=== PATIENT | male | born 1970 | race Caucasian/White ===

== ENCOUNTER 2017-11-02 05:56 | Emergency (ER) | payer MEDICARE, OTHER ==
[2017-11-02 06:24] VITALS: BP 122/88; PULSE 68; TEMP 98; BMI 25.8
[2017-11-02] MEDS ORDERED: IBUPROFEN 600 MG TABLET (FP) PO ONE ×2 (06:27→06:31)
--- NOTE | 2017-11-02 06:40 | PDOC ---
History of Present Illness - General History Source: Patient, Old Records Exam Limitations: No Limitations - History of Present Illness Initial Comments: 11/02/17 06:41 Patient is a 47 year old male with a significant past medical history of murmur as a child, who presents to the ED with complaints of right elbow pain that began 2 week ago. Patient reports standing at work when he was accidentally struck on his right elbow by a steel container filled with sheet rock that he states possibly weight 600 lbs. He reports trying to work through the pain but states it has increased in intensity until it became unbearable, prompting him to come into the ED for further evaluation. Denies numbness, tingling. Denies fevers, chills. Denies nausea, vomiting. Denies chest pain, sob. Denies any other symptoms. Allergies: None Social history: Works in construction. No smoking. No alcohol. No illicit drugs. Surgical history: None PMD: Dr. Ramirez <Francis Plunkett - Last Filed: 11/02/17 06:41> <Candace Vasques - Last Filed: 11/06/17 21:41> - General Chief Complaint: Pain Stated Complaint: ELBOW INJURY Time Seen by Provider: 11/02/17 06:27 Past History <Francis Plunkett - Last Filed: 11/02/17 06:41> - Past Medical History Cardiac Disorders: No COPD: No Diabetes: No Seizures: No Thyroid Disease: No - Suicide/Smoking/Psychosocial Hx Smoking History: Never smoked Hx Alcohol Use: No Drug/Substance Use Hx: No Substance Use Type: None <Candace Vasques - Last Filed: 11/06/17 21:41> - Past Medical History Allergies/Adverse Reactions: Allergies Allergy/AdvReac Type Severity Reaction Status Date / Time No Known Drug Allergies Allergy Verified 11/02/17 06:22 Home Medications: Ambulatory Orders NK [No Known Home Medication] 11/02/17 Review of Systems - Review of Systems Able to Perform ROS?: Yes Comments:: 11/02/17 06:41 GENERAL/CONSTITUTIONAL: No fever or chills. No weakness. HEAD, EYES, EARS, NOSE AND THROAT: No change in vision. No ear pain or discharge. No sore throat. CARDIOVASCULAR: No chest pain or shortness of breath. RESPIRATORY: No cough, wheezing, or hemoptysis. GASTROINTESTINAL: No nausea, vomiting, diarrhea or constipation. GENITOURINARY: No dysuria, frequency, or change in urination. MUSCULOSKELETAL: +Right elbow pain. No neck or back pain. SKIN: No rash NEUROLOGIC: No headache, vertigo, loss of consciousness, or change in strength/ sensation. ENDOCRINE: No increased thirst. No abnormal weight change. HEMATOLOGIC/LYMPHATIC: No anemia, easy bleeding, or history of blood clots. ALLERGIC/IMMUNOLOGIC: No hives or skin allergy. <Francis Plunkett - Last Filed: 11/02/17 06:41> *Physical Exam - Vital Signs Last Vital Signs Temp Pulse Resp BP Pulse Ox 98 F 68 16 122/88 98 11/02/17 06:23 11/02/17 06:23 11/02/17 06:23 11/02/17 06:23 11/02/17 06:23 - Physical Exam Comments: 11/02/17 06:41 GENERAL: Awake, alert, and fully oriented, in no acute distress HEAD: No signs of trauma EYES: PERRLA, EOMI, sclera anicteric, conjunctiva clear ENT: Auricles normal inspection, hearing grossly normal, nares patent, oropharynx clear without exudates. Moist mucosa NECK: Normal ROM, supple, no lymphadenopathy, JVD, or masses LUNGS: Breath sounds equal, clear to auscultation bilaterally. No wheezes, and no crackles HEART: Regular rate and rhythm, normal S1 and S2, no murmurs, rubs or gallops ABDOMEN: Soft, nontender, normoactive bowel sounds. No guarding, no rebound. No masses EXTREMITIES: +Prominence of the right lateral epicondyle No edema. No clubbing or cyanosis. No cords, erythema NEUROLOGICAL: Cranial nerves II through XII grossly intact. Normal speech, normal gait SKIN: Warm, Dry, normal turgor, no rashes or lesions noted. <Francis Plunkett - Last Filed: 11/02/17 06:41> - Vital Signs Last Vital Signs Temp Pulse Resp BP Pulse Ox 98 F 68 16 122/88 98 11/02/17 06:23 11/02/17 06:23 11/02/17 06:23 11/02/17 06:23 11/02/17 06:23 <Candace Vasques - Last Filed: 11/06/17 21:41> ED Treatment Course - Medications Given in the ED: ED Medications Discontinued Medications Generic Name Dose Route Start Last Admin Trade Name Freq PRN Reason Stop Dose Admin Ibuprofen 600 mg 11/02/17 06:27 11/02/17 06:33 Motrin - PO 11/02/17 06:28 600 mg ONCE ONE Administration <Francis Plunkett - Last Filed: 11/02/17 06:41> - RADIOLOGY Radiology Studies Ordered: Category Date Time Status ELBOW-RIGHT [RAD] Stat Radiology 11/02/17 06:26 Ordered - Medications Given in the ED: ED Medications Discontinued Medications Generic Name Dose Route Start Last Admin Trade Name Freq PRN Reason Stop Dose Admin Ibuprofen 600 mg 11/02/17 06:27 11/02/17 06:33 Motrin - PO 11/02/17 06:28 600 mg ONCE ONE Administration <Candace Vasques - Last Filed: 11/06/17 21:41> Medical Decision Making - Medical Decision Making 11/02/17 06:35 Pt comes with lateral epicondyle pain and swelling and tenderness with palpation after a 600lb sterl drum full of sheet rock was pushed into his arm accidentally at work 2 weeks ago on a night. 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 Pt has no other PMHx. He attempted to work through the pain. He has been trating himself with advil, but pain is too severe, and now tying his shoes or drinking coffee with his right hand is too painful, so he comes to check out the right elbow. Pt has pain with supination and pronation. Pulses are intact. Cap refill is normal. Lumbricals intact. Strength in the right arm decreased secondary to pain in the elbow. Rest of exam is normal. XR right elbow pending. Pt will require splinting and follow up with orhto; MRI , as ortho deems needed , and days off, as this is worker's comp issue. Pt has been notified of his need to rest the injured the elbow. Pt will be signed out to the oncoming AM doctor. <Candace Vasques - Last Filed: 11/06/17 21:41> *DC/Admit/Observation/Transfer - Attestations Scribe Attestion: 11/02/17 06:41 Documentation prepared by Francis Plunkett, acting as territory sales manager medical for Candace Vasques MD/DO. <Francis Plunkett - Last Filed: 11/02/17 06:41> <Candace Vasques - Last Filed: 11/06/17 21:41> Diagnosis at time of Disposition: Elbow fracture, right - Discharge Dispostion Disposition: HOME Condition at time of disposition: Good - Referrals Referrals: Lemuel Rodríguez MD [Staff Physician] - Parvez Ramirez MD [Primary Care Provider] - - Patient Instructions Printed Discharge Instructions: How to Use a Sling, DI for Elbow Fracture Additional Instructions: Keep splint in place. Keep dry while showering. Ice affected elbow 20 minutes on 20 minutes off. Do not work. In 1-2 days follow-up with Orthopedics. Follow all recommendations provided by the doctor. He may recommend additional time off. Return to ED for any concerns. - Post Discharge Activity Forms/Work/School Notes: Back to Work
--- NOTE | 2017-11-02 07:44 | PDOC ---
*Physical Exam - Vital Signs Last Vital Signs Temp Pulse Resp BP Pulse Ox 98 F 68 16 122/88 98 11/02/17 06:23 11/02/17 06:23 11/02/17 06:23 11/02/17 06:23 11/02/17 06:23 ED Treatment Course - Medications Given in the ED: ED Medications Discontinued Medications Generic Name Dose Route Start Last Admin Trade Name Luis Armando PRN Reason Stop Dose Admin Ibuprofen 600 mg 11/02/17 06:27 11/02/17 06:33 Motrin - PO 11/02/17 06:28 600 mg ONCE ONE Administration Medical Decision Making - Medical Decision Making 11/02/17 07:39 X-ray findings as dictated. Findings discussed with patient. Patient placed in a posterior 90 elbow splint by INGRIS Cota given sling and provided with orthopedic follow-up this week Findings, need for follow-up, strict return instructions discussed with patient. *DC/Admit/Observation/Transfer Diagnosis at time of Disposition: Elbow fracture, right Qualifiers: Encounter type: initial encounter Fracture type: closed Qualified Code(s): S42.401A - Unspecified fracture of lower end of right humerus, initial encounter for closed fracture - Discharge Dispostion Disposition: HOME Condition at time of disposition: Good Admit: No - Referrals Referrals: Parvez Ramirez MD [Primary Care Provider] - Lemuel Rodríguez MD [Staff Physician] - - Patient Instructions Printed Discharge Instructions: How to Use a Sling, DI for Elbow Fracture Additional Instructions: Keep splint in place. Keep dry while showering. Ice affected elbow 20 minutes on 20 minutes off. Do not work. In 1-2 days follow-up with Orthopedics. Follow all recommendations provided by the doctor. He may recommend additional time off. Return to ED for any concerns. - Post Discharge Activity Forms/Work/School Notes: Back to Work
== END 2017-11-02 07:50 | disposition home or self-care (01) ==
LOC: JER 05:56
PROC: 2W3CX1Z Immobilization of Right Lower Arm using Splint (ICD-10-PCS; principal; 2017-11-02)
DX: S42.401A Unspecified fracture of lower end of right humerus, initial encounter for closed fracture (principal); W20.8XXA Other cause of strike by thrown, projected or falling object, initial encounter; Y93.89 Activity, other specified; Y92.9 Unspecified place or not applicable; Y99.0 Civilian activity done for income or pay
CPT/HCPCS: 73070-TC-RT-FY; 99282-25

== ENCOUNTER 2018-09-18 06:27 | Emergency (ER) | payer MEDICARE ==
[2018-09-18 06:54] VITALS: BP 143/73; PULSE 85; TEMP 97.9; BMI 25.4
--- NOTE | 2018-09-18 07:40 | PDOC ---
History of Present Illness - General Chief Complaint: Chest Pain Stated Complaint: CHEST PAIN, SHORTNESS OF BREATH Time Seen by Provider: 09/18/18 07:04 History Source: Patient Exam Limitations: No Limitations - History of Present Illness Initial Comments: 09/18/18 08:20 48 yo male no sig pmh, 18 pack year hx of smoking (quit 13 years ago) and FHX of father who pasted away from Lung CA in his 40s (no smoking hx) presents to the ED with 3 weeks of SOB, CP and chills. Pt went to Urgent care 3 weeks ago, told he had bronchitis and given 10 days Amoxicillin, taken as prescribed with no improvement. Pt admits to SOB when laying flat and at night, exertional SOB when walking 2 blocks (previously healthy, runs 5 miles a week without difficulty) dry cough and substernal CP with deep breaths and coughing Past History - Past Medical History Allergies/Adverse Reactions: Allergies Allergy/AdvReac Type Severity Reaction Status Date / Time No Known Drug Allergies Allergy Verified 09/18/18 06:54 Home Medications: Ambulatory Orders Methylprednisolone [Medrol Dose Taurus] 4 mg PO ASDIR #21 tablet 09/18/18 Cardiac Disorders: No COPD: No Diabetes: No Seizures: No Thyroid Disease: No - Suicide/Smoking/Psychosocial Hx Smoking History: Never smoked Have you smoked in the past 12 months: No Information on smoking cessation initiated: No Hx Alcohol Use: Yes (Social) Drug/Substance Use Hx: No Substance Use Type: None *Physical Exam - Vital Signs Last Vital Signs Temp Pulse Resp BP Pulse Ox 97.9 F 85 18 143/73 100 09/18/18 06:27 09/18/18 06:27 09/18/18 06:27 09/18/18 06:27 09/18/18 06:27 Moderate Sedation - Procedure Monitoring Vital Signs: Procedure Monitoring Vital Signs Temperature 97.9 F 09/18/18 06:27 Pulse Rate 85 09/18/18 06:27 Respiratory Rate 18 09/18/18 06:27 Blood Pressure 143/73 09/18/18 06:27 O2 Sat by Pulse Oximetry (%) 100 09/18/18 06:27 ED Treatment Course - LABORATORY CBC & Chemistry Diagram: 09/18/18 07:42 09/18/18 07:42 - RADIOLOGY Radiology Studies Ordered: Category Date Time Status CHEST PA & LAT [RAD] Stat Radiology 09/18/18 07:31 Ordered Medical Decision Making - Medical Decision Making 48 yo male, 18 pack year hx, currently non smoker, FHX of father pasted away from lung cancer, presents to the ED SOB for 3 weeks Vitals WNL DDX INLT: ACS, CHF, PE, intersitial lung disease, lung ca, PNA Pt SOB at rest in the ED with normal O2 saturation Peak flow 550 Given duoneb and 2 L O2 NC with improvement of symptoms CBC, CMP unremarkable Trops and BNP normal CK elevated at 480s. Chest CTA negative for PE or acute path Pt still appears mildly SOB and cardiac workup indicated. Pt given 162 ASA 09/18/18 14:19 spoke with SHADE MAKER Anil Carballo who states pt will not have Cardiac work up in hospital until Thursday (non emergent, 3 weeks of s/s and normal blood work) an outpatient Cardiology appointment will be set for Thursday, Currently waiting for Doctor's name and time of appointment before DC Dr. Neal will see pt Thursday. ELVIS Ma will come speak with patient around 2 45 pm and clarify DC instructions for pt. *DC/Admit/Observation/Transfer Diagnosis at time of Disposition: SOB (shortness of breath) - Discharge Dispostion Disposition: HOME Condition at time of disposition: Stable - Prescriptions Prescriptions: Methylprednisolone [Medrol Dose Taurus] 4 mg PO ASDIR #21 tablet - Referrals Referrals: Shakeel Neal MD [Staff Physician] - Adrianna Arora MD [Primary Care Provider] - - Patient Instructions Printed Discharge Instructions: DI for Shortness of Breath, DI for Atypical Chest Pain Additional Instructions: Please call Dr. Neal's office before 10 am Thursday Morning for an appointment later in the day; they are expecting your call. See your Primary Care Doctor within the next 48 hours. Take the medication sent to your Pharmacy as prescribed to help with your shortness of breath. Return to the ER immediately for new or concerning symptoms including but not limited to: chest pain, shortness of breath, new back pain, high fevers. Thank you - Post Discharge Activity
[2018-09-18 07:52] LABS: BASO % 0.4 % (0-2.0); EOS % 0.3 % (0-4.5); HEMOGLOBIN 14.3 GM/dL (11.7-16.9); LYMPH % 14.7 % (8-40); MCH 31.4 pg (25.7-33.7); MEAN CELL VOLUME 89.9 fl (80-96); MEAN PLT VOLUME 8.5 fl (7.5-11.1); NEUT % 77.6 % (42.8-82.8); PLATELET COUNT 241 K/MM3 (134-434); RBC 4.56 M/mm3 (4.00-5.60); RDW 13.4 % (11.9-15.9)
--- NOTE | 2018-09-18 08:08 | PDOC ---
Attending Attestation - Resident Resident Name: Sergey Allen - ED Attending Attestation I have performed the following: I have examined & evaluated the patient, The case was reviewed & discussed with the resident, I agree w/resident's findings & plan - HPI HPI: 09/18/18 08:03 48y/o m former smoker, quit 13 years ago, otherwise healthy and active typically running 5 miles every weekend presents now with 2-3 weeks of ongoing right midthoracic discomfort with cough, chills/night sweats, and dyspnea on exertion. Patient first noticed the symptoms at work when he was climbing stairs and experiencing shortness of breath, which was very unusual for him. The cough developed initially with yellow phlegm, he was seen at an urgent care and prescribed 10 days of amoxicillin with which he was compliance, his symptoms got a little better and the cough became nonproductive but his shortness of breath returned 2 days after completing antibiotics. Presents now for evaluation, denies any sharp or crushing precordial chest pain , more right-sided lung discomfort. No drugs, no PE risk factors, no DVT symptoms Father had lung CA in the absence of smoking history, had DVT/PE in that setting. - Physicial Exam PE: 09/18/18 08:06 Vital signs are normal Well-appearing, ambulatory Occasional dry cough during history and physical exam Oropharynx clear, no JVD Heart is regular, no audible murmur Lungs are clear, subtle crackle at the right base. Slight wheeze with cough, no focally decreased breath sounds Abdomen benign, no hepatosplenomegaly No leg swelling or calf tenderness - Medical Decision Making 09/18/18 08:06 48-year-old male with new dyspnea on exertion for the last 2-3 weeks, associated chills and cough. Presentation seems most consistent with infectious etiology, rule out any space-occupying lesion given the smoking history and family history. Possible cardiac etiology. Labs, urinalysis EKG, chest x-ray. Chest x-ray is normal, would perform CT of the chest with contrast O2 sat is normal at rest, will reassess and disposition accordingly 09/18/18 10:52 labs wnl, including trop though ckmb elevated. cxr clear, cta chest shows no consolidation/PE. given new onset MCCANN, will need admission for further cardiac workup. Heart Score/ECG Review #1 ECG reviewed & interpreted by me at: 06:35 General ECG Interpretation: Sinus Rhythm, Normal Rate, Normal Intervals (qrs 128 with RBBB, qtc 440), No acute ischemic changes Compared to previous ECG there are: No significant change (had IRBBB in 3/16)
[2018-09-18 08:33] LABS: ALBUMIN 3.8 g/dl (3.4-5.0); ALK PHOS 63 U/L (45-117); ANION GAP 5 MMOL/L (8-16); BILIRUBIN,TOTAL 0.3 mg/dL (0.2-1); BLOOD UREA NITROGEN 18 mg/dL (7-18); CALCIUM 8.7 mg/dL (8.5-10.1); CHLORIDE 108 mmol/L (98-107); CO2 25 mmol/L (21-32); CREATININE 0.9 mg/dL (0.55-1.3); GLUCOSE,RANDOM 85 mg/dL (74-106); N-TERMINAL BNP 152.4 pg/ml (5-125); SGOT/AST 30 U/L (15-37); SGPT/ALT 51 U/L (13-61); SODIUM 138 mmol/L (136-145); TOT PROT 6.9 g/dl (6.4-8.2)
[2018-09-18 08:44] LABS: URINE APPEARANCE CLEAR; URINE BILIRUBIN NEGATIVE (<2.0 mg/dL); URINE COLOR COLORLESS; URINE GLUCOSE (UA) NEGATIVE (NEGATIVE); URINE KETONE NEGATIVE (NEGATIVE); URINE LEUK ESTERASE NEGATIVE (NEGATIVE); URINE NITRITE NEGATIVE (NEGATIVE); URINE PROTEIN NEGATIVE (NEGATIVE); URINE UROBILINOGEN NEGATIVE mg/dL (0.2-1.0)
[2018-09-18] MEDS ORDERED: SODIUM CHLORIDE 500 ML IV STA (09:11)
[2018-09-18] MEDS ORDERED: ALBUTEROL SO4 2.5/IPRATROPIUM 0.5 INH SOL 3 ML VIAL.NEB. NEB ONE ×2 (10:49→11:01)
[2018-09-18] MEDS ORDERED: ASPIRIN 81 MG CHEWABLE TABLETS PO ONE (11:08)
[2018-09-18] MEDS ORDERED: ASPIRIN 81 MG CHEWABLE TABLETS ONE (11:24)
--- NOTE | 2018-09-18 13:12 | EKG ---
Test Reason : Blood Pressure : / mmHG Vent. Rate : 072 BPM Atrial Rate : 072 BPM P-R Int : 146 ms QRS Dur : 128 ms QT Int : 402 ms P-R-T Axes : 072 097 027 degrees QTc Int : 440 ms NORMAL SINUS RHYTHM RIGHT BUNDLE BRANCH BLOCK ABNORMAL ECG WHEN COMPARED WITH ECG OF 19-SEP-2015 11:56, RIGHT BUNDLE BRANCH BLOCK HAS REPLACED INCOMPLETE RIGHT BUNDLE BRANCH BLOCK Confirmed by MD KAI, ADALI ([id number]) on 09/18/2018 1:11:53 PM Referred By: Confirmed By:ADALI QUINN MD
== END 2018-09-18 15:25 | disposition home or self-care (01) ==
LOC: JER 06:27
PROC: 3E0F7GC Introduction of Other Therapeutic Substance into Respiratory Tract, Via Natural or Artificial Opening (ICD-10-PCS; principal; 2018-09-18)
PROC: 3E0337Z Introduction of Electrolytic and Water Balance Substance into Peripheral Vein, Percutaneous Approach (ICD-10-PCS; 2018-09-18)
DX: R07.9 Chest pain, unspecified (principal); Z87.891 Personal history of nicotine dependence
CPT/HCPCS: 36415; 71046-TC-FY; 71275-TC; 80053; 81003; 82550; 82553; 83880; 84484; 85025; 87086; 93005; 93010; 94640; 96360; 99284-25

== ENCOUNTER 2020-04-03 09:50 | Emergency (ER) | payer OTHER ==
[2020-04-03 09:58] VITALS: TEMP 97.6; BMI 26.4
[2020-04-03] MEDS ORDERED: SODIUM CHLORIDE 1,000 ML IV STA (10:02)
[2020-04-03] MEDS ORDERED: ACETAMINOPHEN 1000 MG/100 ML VIAL (NON FORMULARY) IVPB ONE (10:02)
--- OUTSIDE RECORDS SUMMARY | 2020-04-03 10:16 | XMS ---
:1970 Author Organization [facility] Care Team Providers Name Role Phone TAYLOR HERNANDEZ, [id number] Unavailable Unavailable Benny Rivera Unavailable Unavailable Re-disclosure Warning The records that you are about to access may contain information from federally- assisted alcohol or drug abuse programs. If such information is present, then the following federally mandated warning applies: This information has been disclosed to you from records protected by federal confidentiality rules (42 CFR part 2). The federal rules prohibit you from making any further disclosure of this information unless further disclosure is expressly permitted by the written consent of the person to whom it pertains or as otherwise permitted by 42 CFR part 2. A general authorization for the release of medical or other information is NOT sufficient for this purpose. The Federal rules restrict any use of the information to criminally investigate or prosecute any alcohol or drug abuse patient.The records that you are about to access may contain highly sensitive health information, the redisclosure of which is protected by Article 27-F of the [facility] Public Health law. If you continue you may haveaccess to information: Regarding HIV / AIDS; Provided by facilities licensed or operated by the [facility] Office of Mental Health; or Provided by the [facility] Office for People With Developmental Disabilities. If such information is present, then the following [facility] mandated warning applies: This information has been disclosed to you from confidential records which are protected by state law. State law prohibits you from making any further disclosure of this information without the specific written consent of the person to whom it pertains, or as otherwise permitted by law. Any unauthorized further disclosure in violation of state law may result in a fine or prison sentence or both. A general authorization for the release of medical or other information is NOT sufficient authorization for further disclosure. Allergies and Adverse Reactions Type Description Substance Reaction Status Data Source(s ) Drug allergy No Known Drug No Known Drug [facility] Allergies Personal Care [facility] Food allergy No Known Food No Known Food [facility] Allergies Allergies [facility] Drug allergy No Known Allergies No Known [facility] [place] Encounters Encounter Providers Location Date Indications Data Source(s ) Outpatient Attender: Benny 01/04/2020 [facility] 07:01:00 [facility] EDT GASTROP[facility]IS Outpatient Attender: [id number] 06/21/2019 03:05:00 Z77.011 [facility] TAYLOR HERNANDEZ [facility] C.Admitter: [id number] TAYLOR CamachoReferrer: [id number] TAYLOR HERNANDEZ Z77.011 Outpatient Attender: [id number] 03/09/2019 10:17:00 R78.71 [facility] TAYLOR HERNANDEZ [facility] C.Admitter: [id number] TAYLOR CamachoReferrer: [id number] TAYLOR HERNANDEZ R78.71 Insurance Providers Payer name Policy type Policy ID Covered Covered alliance party's Policy P opal / Coverage alliance party ID relationship to Ferrell Inf ormation type ferrell [employer] HMO [id number] SP [id number] [employer]ETNA HMO [id number] PT [id number] AETNA O [id number] SP [id number] ARNOL [id number] SP [id number] MEDICARE ADV PLAN Problems, Conditions, and Diagnoses Code Display Name Description Problem Type Effective Data Sour ce(s) Dates Encounter for Z03.89 Diagnosis 01/04/2020 [facility] s observation for 07:01:00 AM Hospital other suspected EDT diseases and conditions ruled out Z77.011 Contact with and CONTACT WITH AND Diagnosis 06/21/2019 [facility] (suspected) (SUSPECTED) 03:05:00 PM [facility] exposure to lead EXPOSURE TO LEAD [facility] R78.71 Abnormal lead ABNORMAL LEAD Diagnosis 03/09/2019 [facility] level in blood LEVEL IN BLOOD 10:17:00 AM [facility]T [facility]
[2020-04-03] MEDS ORDERED: ACETAMINOPHEN INJECTION 100 ML IVPB ONE (10:21)
--- NOTE | 2020-04-03 10:24 | PDOC ---
History of Present Illness - General Chief Complaint: Headache Stated Complaint: HEADACHE Time Seen by Provider: 04/03/20 10:01 History Source: Patient Exam Limitations: No Limitations - History of Present Illness Initial Comments: 04/03/20 10:33 49-year-old male presents to ED with complaints of a frontal throbbing pressure for the past 3 weeks without triggering factors. Patient now stating the pain has radiated to the his occipital region describing it also has a throbbing sensation. Patient denies visual changes, weakness, nausea, dizziness, recent head injury, recent car accident or history of the same. Patient states has taken Motrin with moderate effect. Timing/Duration: reports: other Severity: Yes: moderate Associated Symptoms: reports: denies symptoms Past History - Travel History Traveled outside of the country in the last 30 days: No Close contact w/someone who was outside of country & ill: No - Medical History Allergies/Adverse Reactions: Allergies Allergy/AdvReac Type Severity Reaction Status Date / Time No Known Drug Allergies Allergy Verified 04/03/20 09:55 Home Medications: Ambulatory Orders Methylprednisolone [Medrol Dose [place]] 4 mg PO ASDIR #21 tablet 09/18/18 Methylprednisolone [Medrol Dose [place]] 4 mg PO ASDIR #21 tablet 09/18/18 Butalb/Acetaminophen/Caffeine [Fioricet Tablet 50-325-40] 1 each PO TID PRN #12 tablet MDD 3 04/03/20 Cardiac Disorders: No COPD: No Diabetes: No Seizures: No Thyroid Disease: No - Psycho-Social/Smoking History Patient Lives Alone: No Lives with/in: spouse/SO Smoking History: Never smoked Have you smoked in the past 12 months: No Information on smoking cessation initiated: No - Substance Abuse Hx (Audit-C & DAST Scrn) How often the patient has a drink containing alcohol: Never Score: In Men: 4 or > Positive; In Women: 3 or > Positive: 0 Screen Result (Pos requires Nsg. Audit-10AR): Negative In the last yr the pt used illegal drug/Rx for NonMed reason: No Score: Yes response is considered Positive: 0 Screen Result (Positive result requires Nsg. DAST-10): Negative Review of Systems - Review of Systems Able to Perform ROS?: Yes Is the patient limited Nepali proficient: Yes Constitutional: No: Symptoms Reported HEENTM: No: Symptoms Reported Respiratory: No: Symptoms reported Cardiac (ROS): No: Symptoms Reported ABD/GI: No: Abd. Pain w/ defecation : No: Symptoms Reported Musculoskeletal: No: Symptoms Reported Integumentary: No: Symptoms Reported Neurological: Yes: Headache. No: Weakness, Dizziness Endocrine: No: Symptoms Reported *Physical Exam - Vital Signs Last Vital Signs Temp Pulse Resp BP Pulse Ox 97.6 F 76 17 118/86 98 04/03/20 09:53 04/03/20 09:53 04/03/20 09:53 04/03/20 09:53 04/03/20 09:53 - Physical Exam General Appearance: Yes: Nourished, Appropriately Dressed. No: Apparent Distress HEENT: positive: EOMI, MANDA, TMs Normal, Pharynx Normal. negative: Pale Conjunctivae Neck: positive: Supple. negative: Normal Thyroid Respiratory/Chest: positive: Lungs Clear, Normal Breath Sounds. negative: Respiratory Distress, Accessory Muscle Use Cardiovascular: positive: Regular Rhythm, Regular Rate. negative: Murmur Gastrointestinal/Abdominal: positive: Soft Integumentary: positive: Normal Color, Warm, Moist Neurologic: positive: Motor Strength 5/5 (Ambulatory) ED Treatment Course - LABORATORY CBC & Chemistry Diagram: 04/03/20 10:50 04/03/20 10:50 - RADIOLOGY Radiology Studies Ordered: Category Date Time Status HEAD CT WITHOUT CONTRAST [CT] Stat CT Scan 04/03/20 10:01 Ordered Medical Decision Making - Medical Decision Making 04/03/20 10:51 Chief complaint: Headache x3 weeks rating from frontal to occipital region without associated symptoms or risk factors. Exam: Patient with normal neuro exam and physical exam. Plan: Labs, fluids, IV Tylenol and head CT ordered 04/03/20 10:[address] negative for acute pathology 04/03/20 11:56 Laboratory Tests 04/03/20 04/03/20 10:50 10:50 WBC 9.1 Hgb 15.6 Hct 47.0 MCV 91.2 Sodium 136 Potassium 5.7 H Chloride 104 Carbon Dioxide 27 Anion Gap 5 L BUN 23.8 H Random Glucose 91 Calcium 9.3 Magnesium 2.2 AST 56 H ALT 64 H Patient states feeling better. Patient's elevated potassium likely due to hemolysis. [facility] with recommendations to follow-up with neurologist if symptoms continue. Discharge - Discharge Information Problems reviewed: Yes Clinical Impression/Diagnosis: Headache Qualifiers: Headache type: unspecified Headache chronicity pattern: unspecified pattern Intractability: not intractable Qualified Code(s): R51 - Headache Condition: Improved Disposition: HOME - Additional Discharge Information Prescriptions: Butalb/Acetaminophen/Caffeine [Fioricet Tablet 50-325-40] 1 each PO TID PRN #12 tablet MDD 3 PRN Reason: Pain - Follow up/Referral Referrals: Petrona Miller MD [Primary Care Provider] - Ortega Hinojosa MD [Staff Physician] - - Patient Discharge Instructions Patient Printed Discharge Instructions: DI for Headache Additional Instructions: Please take medication as prescribed as needed for discomfort. Stay well-hydrated. Avoid triggers that aggravate your symptoms. Please follow-up with referred neurologist if your symptoms continue. - Post Discharge Activity
--- NOTE | 2020-04-03 10:49 | PDOC ---
*Physical Exam - Vital Signs Last Vital Signs Temp Pulse Resp BP Pulse Ox 97.6 F 76 17 118/86 98 04/03/20 09:53 04/03/20 09:53 04/03/20 09:53 04/03/20 09:53 04/03/20 09:53 Medical Decision Making - Medical Decision Making 04/03/20 10:48 Patient seen and evaluated with the nurse practitioner. I agree with the overall evaluation, assessment, and management with the following summary of visit: 49-year-old male presents with subacute headache x3 weeks without red flags on history or physical exam, neurologically intact. CT head normal Analgesics given Reassess and disposition accordingly with neurology follow-up Discharge - Discharge Information Problems reviewed: Yes Clinical Impression/Diagnosis: Headache Qualifiers: Headache type: unspecified Headache chronicity pattern: unspecified pattern Intractability: not intractable Qualified Code(s): R51 - Headache - Follow up/Referral Referrals: Petrona Miller MD [Primary Care Provider] - - Patient Discharge Instructions - Post Discharge Activity
[2020-04-03 11:04] LABS: BASO % 0.9 % (0-2.0); EOS % 0.7 % (0-4.5); HEMOGLOBIN 15.6 GM/dL (11.7-16.9); LYMPH % 17.3 % (8-40); MCH 30.4 pg (25.7-33.7); MCHC 33.3 g/dl (32.0-35.9); MEAN CELL VOLUME 91.2 fl (80-96); MEAN PLT VOLUME 9.3 fl (7.5-11.1); MONO % 6.2 % (3.8-10.2); NEUT % 74.9 % (42.8-82.8); PLATELET COUNT 205 K/MM3 (134-434); RBC 5.15 M/mm3 (4.00-5.60); RDW 13.3 % (11.9-15.9); WHITE BLOOD COUNT 9.1 K/mm3 (4.0-10.0)
[2020-04-03 11:36] LABS: BILIRUBIN,TOTAL 0.4 mg/dL (0.2-1); BLOOD UREA NITROGEN 23.8 mg/dL (7-18); CALCIUM 9.3 mg/dL (8.5-10.1); CREATININE 1.3 mg/dL (0.55-1.3); MAGNESIUM 2.2 mg/dL (1.8-2.4); POTASSIUM 5.7 mmol/L (3.5-5.1); TOT PROT 7.5 g/dl (6.4-8.2)
[2020-04-03 12:25] VITALS: BP 122/77; PULSE 73
== END 2020-04-03 12:22 | disposition home or self-care (01) ==
LOC: JER 09:50
PROC: 3E0333Z Introduction of Anti-inflammatory into Peripheral Vein, Percutaneous Approach (ICD-10-PCS; principal; 2020-04-03)
PROC: 3E0337Z Introduction of Electrolytic and Water Balance Substance into Peripheral Vein, Percutaneous Approach (ICD-10-PCS; 2020-04-03)
DX: R51 Headache (principal)
CPT/HCPCS: 36415; 70450-TC; 80053; 83735; 85025; 99284-25; J0131

== ENCOUNTER 2020-05-24 08:00 | Inpatient (IN) | payer OTHER ==
[2020-09-25 09:55] VITALS: BMI 24.7
[2020-09-27] MEDS ORDERED: PROPOFOL 20 ML ONE ×2 (07:06→10:26)
[2020-09-27] MEDS ORDERED: SODIUM CHLORIDE 0.9% P/F 10 ML VIAL IJ ONE (07:06)
[2020-09-27] MEDS ORDERED: MORPHINE 5 MG/10 ML AMP - FOR COMPOUNDING USE ONLY ONE (07:06)
[2020-09-27] MEDS ORDERED: ROCURONIUM BROMIDE 50 MG/5 ML SYRINGE ONE ×2 (07:06→09:03)
[2020-09-27] MEDS ORDERED: DEXMEDETOMIDINE HCL 200 MCG/2 ML IVPB ONE (07:22)
[2020-09-27] MEDS ORDERED: BUPIVACAINE LIPOSOME/PF (EXPAREL) 266 MG/20 ML VIAL ONE (07:48)
[2020-09-27] MEDS ORDERED: VANCOMYCIN 1,000 MG VIAL (RESTRICTED TO ID ONLY) IVPB ONE ×3 (08:28→09:55)
[2020-09-27] MEDS ORDERED: ceFAZolin SODIUM 1 GM VIAL IVPB ONE (08:28)
[2020-09-27] MEDS ORDERED: ceFAZolin SODIUM 1 GM VIAL ONE (08:40)
[2020-09-27] MEDS ORDERED: VANCOMYCIN 1,000 MG VIAL (RESTRICTED TO ID ONLY) ONE (08:40)
[2020-09-27] MEDS ORDERED: TRANEXAMIC ACID 1000 MG/10 ML VIAL ONE (08:40)
[2020-09-27] MEDS ORDERED: DEXAMETHASONE SOD PHOSPHATE 4 MG/1 ML VIAL ONE (08:40)
[2020-09-27] MEDS ORDERED: ONDANSETRON 4 MG/2 ML VIAL ONE ×2 (08:40→13:44)
[2020-09-27] MEDS ORDERED: LIDOCAINE 1%/EPI 1:100000 (50 ML MULTI DOSE VIAL) INF ONE (08:54)
[2020-09-27] MEDS ORDERED: TRANEXAMIC ACID 1000 MG/10 ML VIAL IVPB ONE (08:54)
[2020-09-27] MEDS ORDERED: BACITRACIN 50,000 UNITS VIAL TP ONE ×3 (09:15→09:55)
[2020-09-27] MEDS ORDERED: GENTAMICIN SO4 80 MG/2 ML VIAL IVPB ONE (09:15)
[2020-09-27] MEDS ORDERED: HYDROGEN PEROXIDE 473 ML PO ONE (09:15)
[2020-09-27] MEDS ORDERED: KETAMINE HCL 200 MG/20 ML VIAL ONE ×2 (09:17→09:20)
[2020-09-27] MEDS ORDERED: BUPIVACAINE LIPOSOME/PF (EXPAREL) 266 MG/20 ML VIAL NR ONE ×2 (10:20)
[2020-09-27] MEDS ORDERED: BUPIVACAINE HCL/PF 0.5% (5MG/ML) 10 ML VIAL IJ ONE ×2 (10:20)
[2020-09-27] MEDS ORDERED: IBUPROFEN 800 MG/8 ML IJ IVPB PRN (11:06)
[2020-09-27] MEDS ORDERED: ONDANSETRON 4 MG/2 ML VIAL IVPUSH PRN (11:09)
[2020-09-27] MEDS ORDERED: ACETAMINOPHEN 1000 MG/100 ML VIAL (NON FORMULARY) IVPB ONE ×2 (11:10→12:45)
[2020-09-27] MEDS: ONDANSETRON 4 MG/2 ML VIAL IVPUSH PRN ×2 (13:45→14:00)
[2020-09-27] MEDS: CEFAZOLIN 2 GM/D5W 2 GM/50 ML ML IVPB SCH ×2 (15:13→22:35)
[2020-09-27] MEDS ORDERED: ACETAMINOPHEN 1000 MG/100 ML VIAL (NON FORMULARY) IVPB SCH (16:00)
[2020-09-27] MEDS: ACETAMINOPHEN 1000 MG/100 ML VIAL (NON FORMULARY) IVPB SCH ×3 (18:03→23:51)
[2020-09-27] MEDS ORDERED: MECLIZINE HCL 12.5 MG TABLET PO ONE (18:21)
[2020-09-27] MEDS: LACTATED RINGERS SOLUTION 1,000 ML IV SCH (18:35)
[2020-09-27] MEDS ORDERED: TAMSULOSIN HCL 0.4 MG CAP PO SCH (22:00)
[2020-09-27] MEDS ORDERED: IBUPROFEN 600 MG TABLET (FP) PO ONE (23:26)
[2020-09-27] MEDS: MECLIZINE HCL 12.5 MG TABLET PO PRN (23:57)
[2020-09-28] MEDS ORDERED: TAMSULOSIN HCL 0.4 MG CAP PO SCH (00:50)
[2020-09-28] MEDS: CEFAZOLIN 2 GM/D5W 2 GM/50 ML ML IVPB SCH (01:46)
[2020-09-28] MEDS: ACETAMINOPHEN 1000 MG/100 ML VIAL (NON FORMULARY) IVPB SCH ×3 (05:40→17:24)
[2020-09-28] MEDS ORDERED: SODIUM CHLORIDE 1,000 ML IV SCH (05:45)
[2020-09-28] MEDS: MECLIZINE HCL 12.5 MG TABLET PO PRN (05:48)
[2020-09-28 07:53] LABS: HEMATOCRIT 37.4 % (35.4-49); HEMOGLOBIN 12.6 GM/dL (11.7-16.9); MCHC 33.6 g/dl (32.0-35.9); MEAN CELL VOLUME 92.4 fl (80-96); MEAN PLT VOLUME 9.1 fl (7.5-11.1); PLATELET COUNT 162 K/MM3 (134-434); RBC 4.04 M/mm3 (4.00-5.60); RDW 13.6 % (11.9-15.9); WHITE BLOOD COUNT 11.2 K/mm3 (4.0-10.0)
[2020-09-28 08:03] LABS: POTASSIUM 4.3 mmol/L (3.5-5.1)
[2020-09-28 08:06] LABS: CALCIUM 8.1 mg/dL (8.5-10.1)
[2020-09-28 08:07] LABS: BLOOD UREA NITROGEN 13.2 mg/dL (7-18)
[2020-09-28 08:10] LABS: CREATININE 1.1 mg/dL (0.55-1.3)
[2020-09-28] MEDS: LACTATED RINGERS SOLUTION 1,000 ML IV SCH (11:43)
[2020-09-28] MEDS ORDERED: PT OWN MED DRAWER 7, Y5N ONE (14:47)
[2020-09-28 18:31] VITALS: BP 102/62; PULSE 88; TEMP 98.9
== END 2020-09-28 18:48 | disposition home or self-care (01) | DRG 304 ==
LOC: J2C 09-27 05:22 → J8W 09-27 14:58
PROVIDERS: ADMIT Neurological Surgery; ATTEND Neurological Surgery
PROC: 0SG3071 Fusion of Lumbosacral Joint with Autologous Tissue Substitute, Posterior Approach, Posterior Column, Open Approach (ICD-10-PCS; 2020-09-27)
PROC: 00NY0ZZ Release Lumbar Spinal Cord, Open Approach (ICD-10-PCS; 2020-09-27)
PROC: 0SB40ZZ Excision of Lumbosacral Disc, Open Approach (ICD-10-PCS; 2020-09-27)
PROC: B01BZZZ Fluoroscopy of Spinal Cord (ICD-10-PCS; 2020-09-27)
PROC: 4A11X4G Monitoring of Peripheral Nervous Electrical Activity, Intraoperative, External Approach (ICD-10-PCS; 2020-09-27)
PROC: 0SG30AJ Fusion of Lumbosacral Joint with Interbody Fusion Device, Posterior Approach, Anterior Column, Open Approach (ICD-10-PCS; principal; 2020-09-27 08:00)
DX: M51.17 Intervertebral disc disorders with radiculopathy, lumbosacral region (principal); M47.816 Spondylosis without myelopathy or radiculopathy, lumbar region
CPT/HCPCS: 36415; 72100-TC-FY; 72131-TC; 76000-TC-FY; 80048; 85027; 86850; 86900; 86901; 94760; 97116-GP; 97161-GP; J0131

== ENCOUNTER 2021-10-28 05:28 | Day surgery (SDC) | payer OTHER ==
[2021-10-25 14:33] VITALS: BMI 22.3
[2021-10-28] MEDS ORDERED: LIDOCAINE HCL 1%, 10 MG/ML (50 mL VIAL) NR ONE (14:34)
[2021-10-28] MEDS ORDERED: BUPIVACAINE HCL/PF 0.25% (2.5MG/ML) 10 ML VIAL IJ ONE (14:35)
[2021-10-28] MEDS ORDERED: IOHEXOL 180 MG/1 ML ML IJ ONE (14:36)
[2021-10-28] MEDS ORDERED: DEXAMETHASONE SOD PHOSPHATE 4 MG/1 ML VIAL IVPUSH ONE (14:36)
[2021-10-28] MEDS ORDERED: DEXAMETHASONE SOD PHOSPHATE 10 MG/1 ML VIAL ONE (15:19)
[2021-10-28] MEDS ORDERED: BUPIVACAINE HCL/PF 0.25% (2.5MG/ML) 10 ML VIAL ONE (15:19)
[2021-10-28 16:02] VITALS: BP 110/70; PULSE 64; TEMP 98
== END 2021-10-28 15:45 | disposition home or self-care (01) ==
LOC: JASU-SURG 05:28
PROVIDERS: ATTEND Physical Medicine & Rehabilitation
PROC: 3E0R33Z Introduction of Anti-inflammatory into Spinal Canal, Percutaneous Approach (ICD-10-PCS; 2021-10-28)
PROC: 3E0R3BZ Introduction of Anesthetic Agent into Spinal Canal, Percutaneous Approach (ICD-10-PCS; principal; 2021-10-28 12:30)
DX: M54.16 Radiculopathy, lumbar region (principal); M54.50 Low back pain, unspecified
CPT/HCPCS: J1100

== ENCOUNTER 2022-11-16 18:09 | Emergency (ER) | payer OTHER ==
[2022-11-16 18:20] VITALS: BP 127/78; PULSE 70; RESP 18; TEMP 97.8; BMI 21.7
[2022-11-16] MEDS ORDERED: ACETAMINOPHEN 500 MG TABLET (FP) PO ONE (19:52)
[2022-11-16] MEDS ORDERED: ACETAMINOPHEN 325 MG TABLET (FP) ONE (20:17)
== END 2022-11-16 23:34 | disposition short-term general hospital (02) ==
LOC: JER 18:09
DX: T17.208A Unspecified foreign body in pharynx causing other injury, initial encounter (principal); R09.89 Other specified symptoms and signs involving the circulatory and respiratory systems
CPT/HCPCS: 70490-TC; 71250-TC; 99284-25

== ENCOUNTER 2023-10-26 03:57 | Day surgery (SDC) | payer OTHER ==
[2023-10-21 09:16] VITALS: BMI 21.7
[2023-10-26] MEDS ORDERED: LIDOCAINE HCL 1%, 10 MG/ML (20ML VIAL) ONE (12:46)
[2023-10-26] MEDS ORDERED: ONDANSETRON 4 MG/2 ML VIAL ONE ×2 (13:13→13:59)
[2023-10-26] MEDS ORDERED: DEXAMETHASONE SOD PHOSPHATE 4 MG/1 ML VIAL ONE ×2 (13:13→13:59)
[2023-10-26] MEDS ORDERED: MIDAZOLAM HCL 2 MG/2 ML SINGLE DOSE VIAL ONE (13:13)
[2023-10-26] MEDS ORDERED: PROPOFOL 40 ML ONE ×2 (13:14→13:59)
[2023-10-26] MEDS ORDERED: SODIUM CHLORIDE 0.9% P/F 10 ML VIAL IJ ONE (13:18)
[2023-10-26] MEDS ORDERED: ceFAZolin SODIUM 1 GM VIAL ONE (13:18)
[2023-10-26] MEDS ORDERED: ACETAMINOPHEN INJECTION 100 ML IVPB ONE (13:30)
[2023-10-26] MEDS ORDERED: BUPIVACAINE HCL/PF 0.25% (2.5MG/ML) 10 ML VIAL ONE (13:41)
[2023-10-26] MEDS ORDERED: LIDOCAINE HCL/PF 1% SDV 5ML VIAL ONE (13:42)
[2023-10-26] MEDS: LIDOCAINE 1% P/F 10 MG/ML VIAL INF ONE (13:58)
[2023-10-26] MEDS ORDERED: ONDANSETRON 4 MG/2 ML VIAL IVPUSH PRN ×2 (14:39→14:41)
[2023-10-26] MEDS: LACTATED RINGERS SOLUTION 1,000 ML IV SCH (15:08)
[2023-10-26 16:50] VITALS: RESP 18
[2023-10-26 16:53] VITALS: BP 129/79; PULSE 70; TEMP 98.4
== END 2023-10-26 16:25 | disposition home or self-care (01) ==
LOC: JASU-SURG 03:57
PROVIDERS: ATTEND Physical Medicine & Rehabilitation
PROC: 00HU3MZ Insertion of Neurostimulator Lead into Spinal Canal, Percutaneous Approach (ICD-10-PCS; principal; 2023-10-26 13:00)
DX: M96.1 Postlaminectomy syndrome, not elsewhere classified (principal); M54.16 Radiculopathy, lumbar region; M48.061 Spinal stenosis, lumbar region without neurogenic claudication
CPT/HCPCS: 63650; C1897; 76000-TC-FY; 94760; J0131

== ENCOUNTER 2025-01-03 13:41 | Emergency (ER) | payer OTHER ==
[2025-01-03 13:53] VITALS: RESP 18; BMI 22.4
[2025-01-03] MEDS ORDERED: IBUPROFEN 600 MG TABLET (FP) PO ONE (15:40)
[2025-01-03] MEDS: IBUPROFEN 600 MG TABLET (FP) PO ONE (15:50)
[2025-01-03 16:06] LABS: ABSOLUTE IMMATURE GRANULOCYTES 0.03 x10^3/uL (0.0-0.031); BASOPHILS # 0.06 x10^3/uL (0.01-0.08); EOSINOPHIL % 0.7 % (0.8-7.0); EOSINOPHILS # 0.05 x10^3/uL (0.04-0.54); MCHC 33.9 g/dl (32.3-36.5); MEAN CELL VOLUME 91.8 fl (79.0-92.2); MEAN PLT VOLUME 10.2 fl (9.4-12.4); MONOCYTE # 0.43 x10^3/uL (0.30-0.82); MONOCYTE % 5.6 % (5.3-12.2); RDW 12.6 % (12.2-16.1)
[2025-01-03 16:07] LABS: URINE APPEARANCE CLEAR; URINE BILIRUBIN NEGATIVE (NEGATIVE); URINE COLOR YELLOW; URINE GLUCOSE (UA) NEGATIVE (NEGATIVE); URINE KETONE NEGATIVE (NEGATIVE); URINE LEUK ESTERASE NEGATIVE (NEGATIVE); URINE NITRITE NEGATIVE (NEGATIVE); URINE PROTEIN NEGATIVE (NEGATIVE); URINE UROBILINOGEN 0.2 mg/dL (0.2-1.0)
[2025-01-03 16:44] LABS: GLUCOSE,RANDOM 90 mg/dL (74-106)
[2025-01-03 16:45] LABS: CO2 28 mmol/L (21-32)
[2025-01-03 16:48] LABS: CREATININE 1.0 mg/dL (0.55-1.3); SGOT/AST 30 U/L (15-37); SGPT/ALT 45 U/L (13-61)
[2025-01-03 16:49] LABS: TOT PROT 7.0 g/dl (6.4-8.2)
[2025-01-03 16:50] LABS: ALK PHOS 68 U/L (45-117)
[2025-01-03 16:55] LABS: ERYTHROCYTE SEDIMENTATION RATE 4 mm/hr (0-20)
[2025-01-03 18:22] VITALS: BP 123/86; PULSE 60
[2025-01-03 19:16] VITALS: TEMP 97.9
== END 2025-01-03 19:13 | disposition home or self-care (01) ==
LOC: JER 13:41
DX: M53.3 Sacrococcygeal disorders, not elsewhere classified (principal); R68.83 Chills (without fever); R63.0 Anorexia
CPT/HCPCS: 36415; 72128-TC; 72131-TC; 80053; 81003; 82962; 83735; 85025; 85651; 86140; 87040; 87086; 87637-QW; 99284-25